=== PATIENT | female | born 1985 | race Two or more races ===

== ENCOUNTER 2021-03-05 07:29 | Outpatient (CLI) | payer OTHER | END 2021-03-05 08:58 | disposition home or self-care (01) | LOC: NST 07:29 | PROVIDERS: ATTEND Obstetrics & Gynecology Maternal & Fetal Medicine | DX: O16.3 Unspecified maternal hypertension, third trimester (principal) ==

== ENCOUNTER 2021-03-19 07:24 | Outpatient (CLI) | payer OTHER | END 2021-03-19 08:23 | disposition home or self-care (01) | LOC: NST 07:24 | PROVIDERS: ATTEND Obstetrics & Gynecology Maternal & Fetal Medicine | DX: Z34.83 Encounter for supervision of other normal pregnancy, third trimester (principal) ==

== ENCOUNTER 2021-04-16 10:57 | Outpatient (CLI) | payer OTHER | END 2021-04-16 12:53 | disposition home or self-care (01) | LOC: NST 10:57 | PROVIDERS: ATTEND Obstetrics & Gynecology Maternal & Fetal Medicine | DX: O16.3 Unspecified maternal hypertension, third trimester (principal); Z3A.35 35 weeks gestation of pregnancy ==

== ENCOUNTER 2021-05-07 14:58 | Outpatient (CLI) | payer OTHER | END 2021-05-07 17:02 | disposition home or self-care (01) | LOC: NST 14:58 | PROVIDERS: ATTEND Obstetrics & Gynecology | DX: Z34.83 Encounter for supervision of other normal pregnancy, third trimester (principal) ==

== ENCOUNTER 2021-05-08 12:45 | Inpatient (IN) | payer OTHER ==
[~2021-05-08] VITALS: Ht 162.6 cm; Wt 3.2 kg
[2021-05-18] MEDS ORDERED: LABETALOL HCL100 MG PO (09:12)
[2021-05-18] MEDS ORDERED: PRENATAL TABLE1 EAC1 PO (09:13)
== END 2021-05-21 13:45 | disposition home or self-care (01) | DRG 787 ==
LOC: LDR 05-16 09:45 → SURG-SUITE 05-18 12:47
PROVIDERS: ADMIT Obstetrics & Gynecology Maternal & Fetal Medicine; ATTEND Obstetrics & Gynecology Maternal & Fetal Medicine
PROC: 4A1HXFZ Monitoring of Products of Conception, Cardiac Rhythm, External Approach (ICD-10-PCS; 2021-05-18)
PROC: 10D00Z1 Extraction of Products of Conception, Low, Open Approach (ICD-10-PCS; principal; 2021-05-18 13:00)
DX: O76 Abnormality in fetal heart rate and rhythm complicating labor and delivery (principal); O10.02 Pre-existing essential hypertension complicating childbirth; Z37.0 Single live birth; Z3A.40 40 weeks gestation of pregnancy; Z20.822 Contact with and (suspected) exposure to COVID-19

== ENCOUNTER 2021-05-12 09:23 | Outpatient (CLI) | payer OTHER | END 2021-05-12 10:17 | disposition home or self-care (01) | LOC: NST 09:23 | PROVIDERS: ATTEND Obstetrics & Gynecology Maternal & Fetal Medicine | DX: Z34.83 Encounter for supervision of other normal pregnancy, third trimester (principal) ==